=== PATIENT | female | born 1995 | race Caucasian/White ===

== ENCOUNTER 2016-10-31 18:01 | Emergency (ER) | payer OTHER ==
[2016-10-31 18:27] VITALS: BP 131/79
--- NOTE | 2016-10-31 18:34 | UC ---
Psychiatric Complaint HPI - HPI Summary HPI Summary: Discharged from senior care yesterday, and is here to get rx's for prozac and wellbutring, which are prescribed for treatment of depression and ADHD. - History Of Current Complaint Chief Complaint: UCMedRefill Stated Complaint: MED REFILL Time Seen by Provider: 10/31/16 18:27 Hx Obtained From: Patient, Family/Medication Administration Professional - her with mother Hx Last Menstrual Period: 10/06/16 ?: No Onset/Duration: Gradual Onset, Lasting Weeks Severity Initially: Moderate Severity Currently: Moderate Character: Depressed, Anxious Aggravating Factor(s): Nothing Alleviating Factor(s): Medication - Risk Factor(s) Completed Suicide Risk Factors: Negative - Allergies/Home Medications Allergies/Adverse Reactions: Allergies Allergy/AdvReac Type Severity Reaction Status Date / Time Cefprozil [From Cefzil] Allergy Rash Verified 10/31/16 18:05 Penicillins Allergy Rash Verified 10/31/16 18:05 PMH/Surg Hx/FS Hx/Imm Hx Psychological History: Depression, Other - ADHD Other Psychological History: ADHD - Surgical History Surgical History: Yes Surgery Procedure, Year, and Place: wisdom teeth - Family History Known Family History: Positive: Hypertension - Social History Occupation: Unemployed Lives: With Family - mother and daughter Alcohol Use: None Substance Use Type: None Substance Use Comment - Amount & Last Used: PREVIOUS HEROIN USER Smoking Status (MU): Former Smoker Type: Cigarettes Amount Used/How Often: 1/2 PPD Length of Time of Smoking/Using Tobacco: 3 YRS Household Exposure Type: Cigarettes - Immunization History Vaccination Up to Date: Yes Review of Systems Constitutional: Negative Skin: Negative Eyes: Negative ENT: Negative Respiratory: Negative Cardiovascular: Negative Gastrointestinal: Negative Genitourinary: Negative Motor: Negative Neurovascular: Negative Musculoskeletal: Negative Neurological: Negative Psychological: Depressed All Other Systems Reviewed And Are Negative: Yes Physical Exam Triage Information Reviewed: Yes Appearance: Well-Nourished, Other: - normal mood, mildly anxious. Vital Signs: Initial Vital Signs Temp 98.4 F 10/31/16 18:07 Pulse 86 10/31/16 18:07 Resp 18 10/31/16 18:07 BP 131/79 10/31/16 18:07 Pulse Ox 99 10/31/16 18:07 Vital Signs Reviewed: Yes ENT Exam: Normal Respiratory Exam: Normal Respiratory: Positive: Lungs clear, Normal breath sounds Cardiovascular: Positive: RRR, No Murmur Psychological Exam: Other - Neatly groomed and dressed, normal mood and affect. Alert and oriented. No suicidality or homicidality. Skin Exam: Normal Psych Complaint Course/Dx - Course Course Of Treatment: continue fluoxetine and bupropion for mood stabilization. - Differential Dx/Diagnosis Provider Diagnoses: depression Discharge - Discharge Plan Condition: Stable Disposition: HOME Prescriptions: FLUoxetine CAP* [Prozac CAP*] 3 cap PO DAILY #63 cap buPROPion TAB* [Wellbutrin TAB*] 2 tab PO BID #84 tab Patient Education Materials: Depression (ED) Referrals: No Primary Care Phys,NOPCP [Primary Care Provider] - Additional Instructions: Resume use of prozac (fluoxetine) 60mg daily and bupropion 150mg twice daily. You have been prescribed 3 weeks of medications, and are seeking to establish care with a new primary care doctor within the next week.
== END 2016-10-31 18:44 | disposition home or self-care (01) ==
LOC: UCCORT 18:01
DX: F32.9 Major depressive disorder, single episode, unspecified (principal); Z87.891 Personal history of nicotine dependence; Z88.1 Allergy status to other antibiotic agents; Z88.0 Allergy status to penicillin
CPT/HCPCS: 99212; G0463

== ENCOUNTER 2019-02-05 13:18 | Emergency (ER) | payer OTHER ==
[2019-02-05 13:47] VITALS: BP 155/88
--- NOTE | 2019-02-05 14:08 | UC ---
General HPI - HPI Summary HPI Summary: patient to urgent care requesting refill on wellbutrin --she has an appointment with in [place] on February 17-- she has not been completely adherent to treatment and last filled December 20, 2018--no chance of - History of Current Complaint Chief Complaint: UCMedRefill Stated Complaint: MEDICATION REFILL Time Seen by Provider: 02/05/19 13:52 Hx Obtained From: Patient Pain Intensity: 0 - Allergy/Home Medications Allergies/Adverse Reactions: Allergies Allergy/AdvReac Type Severity Reaction Status Date / Time cefprozil [From Cefzil] Allergy Rash Verified 02/05/19 13:39 Penicillins Allergy Rash Verified 02/05/19 13:39 Home Medications: Home Medications ARIPiprazole TAB* [Abilify 20 MG TAB*] 20 mg PO DAILY 02/05/19 [History Confirmed 02/05/19] Propranolol TAB* [Inderal TAB*] 10 mg PO DAILY 02/05/19 [History Confirmed 02/05] PMH/Surg Hx/FS Hx/Imm Hx Previously Healthy: No Psychological History: Anxiety, Depression - Surgical History Surgical History: None Surgery Procedure, Year, and Place: wisdom teeth - Family History Known Family History: Positive: Hypertension Negative: Diabetes - Social History Occupation: Unemployed Lives: With Family Alcohol Use: None Substance Use Type: None Substance Use Comment - Amount & Last Used: prior heroin use Smoking Status (MU): Current Every Day Smoker Type: eCigarettes Amount Used/How Often: daily Length of Time of Smoking/Using Tobacco: 3 YRS Household Exposure Type: Cigarettes - Immunization History Vaccination Up to Date: Yes Review of Systems All Other Systems Reviewed And Are Negative: Yes Constitutional: Positive: Negative Skin: Positive: Negative Eyes: Positive: Negative ENT: Positive: Negative Respiratory: Positive: Negative Cardiovascular: Positive: Negative Gastrointestinal: Positive: Negative Genitourinary: Positive: Negative Motor: Positive: Negative Neurovascular: Positive: Negative Musculoskeletal: Positive: Negative Neurological: Positive: Negative Psychological: Positive: Negative Is Patient Immunocompromised?: No Physical Exam Triage Information Reviewed: Yes Appearance: Well-Appearing, No Pain Distress, Well-Nourished Vital Signs: Initial Vital Signs Temp 97.3 F 02/05/19 13:43 Pulse 117 02/05/19 13:43 Resp 18 02/05/19 13:43 BP 155/88 02/05/19 13:43 Pulse Ox 100 02/05/19 13:43 Vital Signs Reviewed: Yes Eye Exam: Normal Eyes: Positive: Conjunctiva Clear ENT Exam: Normal ENT: Positive: Normal ENT inspection, Hearing grossly normal. Negative: Nasal congestion, Trismus, Muffled voice, Hoarse voice Neck exam: Normal Neck: Positive: Supple, Nontender Respiratory Exam: Normal Respiratory: Positive: Chest non-tender, No respiratory distress, No accessory muscle use Cardiovascular Exam: Normal Cardiovascular: Positive: RRR, Pulses Normal, Brisk Capillary Refill Musculoskeletal Exam: Normal Musculoskeletal: Positive: Strength Intact, ROM Intact, No Edema Neurological Exam: Normal Neurological: Positive: Alert, Muscle Tone Normal Psychological Exam: Normal Skin Exam: Normal Course/Dx - Course Course Of Treatment: dose and last filled confirmed with [facility] pharmacy will refill for 15 days will follow up with pcp as planned - Diagnoses Provider Diagnosis: Medication refill Discharge ED - Sign-Out/Discharge Documenting (check all that apply): Patient Departure All imaging exams completed and their final reports reviewed: No Studies - Discharge Plan Condition: Stable Disposition: HOME Prescriptions: Bupropion XL* [Wellbutrin XL *] 150 mg PO DAILY 15 Days #1 tab Bupropion XL* [Wellbutrin XL *] 150 mg PO DAILY #15 tab Patient Education Materials: Hypertension (ED), Caffeine Use (ED) Referrals: No Primary Care Phys,NOPCP [Primary Care Provider] - Additional Instructions: Follow with your doctor in [place] as planned February 17, 2019 - Billing Disposition and Condition Condition: STABLE Disposition: Home
== END 2019-02-05 14:20 | disposition home or self-care (01) ==
LOC: UCCORT 13:18
DX: Z76.0 Encounter for issue of repeat prescription (principal); F32.9 Major depressive disorder, single episode, unspecified; F17.290 Nicotine dependence, other tobacco product, uncomplicated; Z79.899 Other long term (current) drug therapy; Z88.0 Allergy status to penicillin; Z88.1 Allergy status to other antibiotic agents
CPT/HCPCS: 99212; G0463